=== PATIENT | male | born 1970 | race Caucasian/White ===

== ENCOUNTER 2020-01-26 13:50 | Emergency (ER) | payer OTHER ==
[2020-01-26 13:59] VITALS: BP 131/92; PULSE 73; TEMP 98.9; BMI 30.8
== END 2020-01-26 15:15 | disposition home or self-care (01) ==
LOC: FER 13:50
DX: S53.402A Unspecified sprain of left elbow, initial encounter (principal)
CPT/HCPCS: 73070-TC-LT-FY; 99283-25